=== PATIENT | female | born 1990 | race Caucasian/White ===

== ENCOUNTER → 2020-08-01 15:46 | Outpatient (BNVA) | payer OTHER, SELFPAY | PROVIDERS: PCP Anesthesiology; Referring Provider Anesthesiology; Visit Provider Anesthesiology | DX: G54.0 Brachial plexus disorders (principal); G89.4 Chronic pain syndrome; M19.019 Primary osteoarthritis, unspecified shoulder | CPT/HCPCS: 99202 ==